=== PATIENT | female | born 2000 | race African-American/Black ===

== ENCOUNTER 2024-04-27 21:16 | Emergency (ER) | payer MEDICAID ==
[~2024-04-27] VITALS: Ht 172.7 cm; Wt 80.3 kg
--- NOTE | 2024-04-27 21:34 | ED.PDOC ---
Lulu. trauma (HPI) HPI Comments 24 y.o female presents to the ED for a chief complaint of left lower leg and ankle pain and swelling s/p fall 5 days ago. Patient reports she was running and hit her leg on a curb, causing a small abrasion to bleed. Patient controlled bleeding but mentions swelling has not gone down since. No head injury, numbness to pain site, tingling sensation. Patient is able to ambulate but with moderate pain. Time Seen by MD: 21:28 Reviewed notes: Nurses Notes, Medications, Allergies Allergies: Coded Allergies: NO KNOWN ALLERGIES (Unverified , 04/27/24) Information Source: Patient Mode of Arrival: Ambulatory Severity: Moderate Timing: Days (5) Duration: Since onset Location: (L) Ankle, (L) Foot Location of laceration: None Mechanism: Twisting, Fall Associated signs and symtoms: Other Past Medical History PAST MEDICAL HISTORY: Denies Surgical History: Denies all surgeries CLINICAL DATA ASSISTANT History: No Pertinent CLINICAL DATA ASSISTANT History Family History Family History: Reviewed,noncontributory to illness, No family hx of Cancer, No family hx of DM, No family hx of Heart linda, No family hx of HTN, No family hx ofKidney linda, No family hx of Liver linda, No family hx of Lung linda, No family hx of Stroke Social History Smoker: Non-Smoker Alcohol: Denies ETOH Use Drugs: Denies Drug Use Lives In: Home Constitutional: denies: chills, diaphoresis, fatigue, fever, malaise, sweats, weakness, others EENTM: denies: blurred vision, double vision, ear bleeding, ear discharge, ear drainage, ear pain, ear ringing, eye pain, eye redness, hearing loss, mouth pain, mouth swelling, nasal discharge, nose bleeding, nose congestion, nose pain, photophobia, tearing, throat pain, throat swelling, voice changes, others Respiratory: denies: cough, hemoptysis, orthopnea, SOB at rest, shortness of breath, SOB with excertion, stridor, wheezing, others Cardiovascular: denies: chest pain, dizzy spells, diaphoresis, Dyspnea on exertion, edema, irregular heart beat, left arm pain, lightheadedness, palpitations, PND, syncope, others Gastrointestinal: denies: abdomen distended, abdominal pain, blood streaked bowels, constipated, diarrhea, dysphagia, difficulty swallowing, hematemesis, melena, nausea, poor appetite, poor fluid intake, rectal bleeding, rectal pain, vomiting, others Genitourinary: denies: abnormal vagina bleeding, burning, dyspareunia, dysuria, flank pain, frequency, hematuria, incontinence, pain, , vagina discharge, urgency, others Neurological: denies: dizziness, fainting, headache, left sided numbness, left sided weakness, numbness, paresthesia, pre-existing deficit, right sided numbness, right sided weakness, seizure, speech problems, tingling, tremors, weakness, others Musculoskeletal: reports: others (left ankle and left foot pain associated with swelling ); denies: back pain, gout, joint pain, joint swelling, muscle pain, muscle stiffness, neck pain Integumetry: denies: bruises, change in color, change in hair/nails, dryness, laceration, lesions, lumps, rash, wounds, others Allergic/Immunocompromised: denies: Difficulty Healing, Frequent Infections, Hives, Itching, others Hematologic/Lymphatic: denies: anemia, blood clots, easy bleeding, easy bruisin g, swollen glands, others Endocrine: denies: excessive hunger, excessive sweating, excessive thirst, excessive urination, flushing, intolerance to cold, intolerance to heat, unexplained weight gain, unexplained weight loss, others Psychiatric: denies: anxiety, bipolar disorder, depression, hopeless, panic disorder, schizophrenia, sleepless, suicidal, others All Other Systems: Reviewed and Negative Physical Exam General Appearance: Mild Distress (Moderate distress due to foot pain concerns. Patient declined any pain medication.), Normal HEENT: Normal ENT Inspection, Pharynx Normal, TMs Normal Neck: Full Range of Motion, Non-Tender, Normal, Normal Inspection Respiratory: Chest Non-Tender, Lungs Clear, No Accessory Muscle Use, No Respiratory Distress, Normal Breath Sounds Cardiovascular: No Edema, No JVD, No Murmur, No Gallop, Normal Peripheral Pulses, Regular Rate/Rhythm Breast Exam: Deferred Gastrointestinal: No Organomegaly, Non Tender, No Pulsatile Mass, Normal Bowel Sounds, Soft Genitalia: Deferred Pelvic: Deferred Rectal: Deferred Extremities: Other (Medial ankle and foot of left foot reveals diffuse tenderness to palpation with a exquisite tenderness towards the posterior aspect. Localized edema without ecchymosis. Moderate reduced range of motion. Distal neurovascularly intact.) Neurologic: Alert, computer technologist II-XII nml as Tested, No Motor Deficits, Normal Affect, Normal Mood, No Sensory Deficits Cerebellar Function: Normal Reflexes: Normal Skin: Dry, Normal Color, Warm Lymphatic: No Adenopathy Was a procedure done? Was a procedure done?: No Differential Diagnosis Multiple Trauma: Fractures, Abrasions, Contusion, Other (sprain, strain ) X-Ray, Labs, Meds, VS Vital Signs Date Time Temp Pulse Resp B/P (MAP) Pulse Ox O2 Delivery O2 Flow Rate FiO2 04/27/24 21:32 98.4 105 16 137/88 (104) 98 X-Ray, Labs, Meds, VS Comment All studies performed in the ED were evaluated by me personally. Imaging studies of the left ankle revealed a acute nondisplaced fracture of the medial part of the superior talus. Mild medial ankle soft tissue edema. Patient was provided with a splint and crutches. Patient has been advised to follow up with her primary care provider in approximately five days for re-evaluation and probable cast placement. Time of 1ST Reevaluation: 23:13 Reevaluation 1ST: Unchanged Consultation: PCP Patient Education/Counseling: Diagnosis, Treatment, Prognosis Family Education/Counseling: Diagnosis, Treatment, No Family Present Departure 1 Departure Time of Disposition: 23:13 Impression: Primary Impression: Fracture, talus closed Disposition: HOME / SELF CARE / HOMELESS Condition: Stable Additional Instructions: Advised patient utilize pain medication as needed for symptomatic relief in additionally, patient will need to follow up with her primary care provider in approximately five days for re-evaluation and cast placement. If patient is unable to get into her provider, patient can contact this facility at [phone] and asked for our orthopedic department run by Dr. Dotson. e-Prescriptions Ibuprofen Micronized (Ibuprofen) 800 Mg Tab 800 MG PO Q8HP PRN, #20 TAB Prov: LEIDY PUTNAM PAC 04/27/24 Acetaminophen (Acetaminophen) 500 Mg Tab 500 MG PO Q4HP PRN, #30 TAB Prov: LEIDY PUTNAM PAC 04/27/24 Discharged With: Self, Friend Critical Care Note Critical Care Time?: No Stability Stability form required: No I personally scribed for LEIDY PUTNAM PAC ([email or web address]) on 04/27/24 at 21:34. Electronically submitted by Dinora Carver ([facility]). LEIDY PUTNAM PAC Apr 27, 2024 21:34
--- NOTE | 2024-04-27 21:56 | DVH ---
CLINICAL INDICATION: Injury/trauma TECHNIQUE: 3 radiographic views of the left ankle were obtained. Comparison: None FINDINGS/IMPRESSION: Acute nondisplaced fracture /osteochondritis desiccans of the medial part of the superior talus. Mil d medial ankle soft tissue edema. The visualized joint space is well maintained. The alignment is anatomical. There is no radiopaque foreign body.
[2024-04-27] MEDS ORDERED: ACET500T58 PO (23:15)
[2024-04-27] MEDS ORDERED: IBUP-1455 PO (23:15)
[2024-04-27 23:40] VITALS: BP 133/90; PULSE 109; RESP 18; O2SAT 100
== END 2024-04-27 23:47 | disposition home or self-care (01) ==
LOC: ER 21:16
DX: S92.192A Other fracture of left talus, initial encounter for closed fracture (principal); W22.8XXA Striking against or struck by other objects, initial encounter; Y93.89 Activity, other specified; Y92.89 Other specified places as the place of occurrence of the external cause; Y99.8 Other external cause status
CPT/HCPCS: 29515; 73610